=== PATIENT | male | born 1950 | race Caucasian/White ===

== ENCOUNTER 2016-05-31 16:49 | Emergency (ER) | payer MEDICARE, BC ==
[2016-05-31 17:11] VITALS: BP 144/72
--- NOTE | 2016-05-31 18:04 | UC ---
HPI Febrile Illness - HPI Summary HPI Summary: 65 yo male with less than 24 hour hx of f/c Tmax 103.2 chronic gagging/cough when taking PO (throat CA) no CP or SOB NO ABD pain no UTI symptoms no myalgia - History of Current Complaint Chief Complaint: UCGeneralIllness Time Seen by Provider: 05/31/16 17:12 Hx Obtained From: Patient Timing: Intermittent Temperature: 103.2 F Initial Severity: Moderate Current Severity: None Pain Intensity: 0 Pain Scale Used: 0-10 Numeric Alleviating Factors: Nothing Associated Signs and Symptoms: Myalgia - Risk Factors Pseudomonas Risk Factors: Negative - Additional Pertinent History Primary Care Physician: [id number] - Allergy/Home Medications Allergies/Adverse Reactions: Allergies Allergy/AdvReac Type Severity Reaction Status Date / Time No Known Allergies Allergy Verified 05/31/16 17:11 Home Medications: Home Medications Acetaminophen [Tylenol] 1,000 mg PO ONCE PRN 05/31/16 [History Confirmed ] PMH/Surg Hx/FS Hx/Imm Hx Previously Healthy: Yes Endocrine/Hematology History: Denies: Hx Diabetes Cardiovascular History: Reports: Hx Hypertension - treated with medication Denies: Hx Pacemaker/ICD History: Denies: Hx Dialysis, Hx Renal Disease Sensory History: Denies: Hx Contacts or Glasses, Hx Hearing Aid Opthamlomology History: Denies: Hx Contacts or Glasses EENT History: Reports: Other - throat CA Psychiatric History: Denies: Hx Panic Disorder - Cancer History Cancer Type, Location and Year: throat cancer - chemo and radiation (finished Mar 2015) Hx Chemotherapy: Yes - FINISHED 04/2015 - Surgical History Surgery Procedure, Year, and Place: skin graph removed from back 15+yrs ago Hx Anesthesia Reactions: No Infectious Disease History: No Infectious Disease History: Reports: Traveled Outside the [place] in Last 30 Days - [place] 2 weeks [place] - Family History Known Family History: Positive: Hypertension - Social History Alcohol Use: Rare Substance Use Type: Reports: None Hx Tobacco Use: No Smoking Status (MU): Never Smoked Tobacco Have You Smoked in the Last Year: No Review of Systems Constitutional: Fever, Chills, Fatigue Skin: Negative Eyes: Negative ENT: Negative Respiratory: Negative Cardiovascular: Negative Gastrointestinal: Negative Genitourinary: Negative Motor: Negative Neurovascular: Negative Musculoskeletal: Myalgia Neurological: Negative Psychological: Negative All Other Systems Reviewed And Are Negative: Yes Physical Exam Triage Information Reviewed: Yes Appearance: Well-Appearing, No Pain Distress, Well-Nourished Vital Signs: Initial Vital Signs Temp 100.4 F 05/31/16 17:00 Pulse 94 05/31/16 17:00 Resp 20 05/31/16 17:00 BP 144/72 05/31/16 17:00 Pulse Ox 96 05/31/16 17:00 Eyes: Positive: Conjunctiva Clear ENT: Positive: Pharyngeal erythema. Negative: Nasal congestion, Nasal drainage , Trismus Neck: Positive: Supple, Nontender Respiratory: Positive: Lungs clear, Normal breath sounds, No respiratory distress, No accessory muscle use Cardiovascular: Positive: RRR, No Murmur Abdomen Description: Positive: Nontender, No Organomegaly Bowel Sounds: Positive: Present Musculoskeletal: Positive: ROM Intact, No Edema Neurological: Positive: Alert Psychological Exam: Normal Skin Exam: Normal Course/Dx - Course Course Of Treatment: D/W MARIKA NEAL AT [facility]. MEET CRITERIA FOR ZIKA TESTING. NEEDS TO BE DONE A [facility] TOMORROW BTW 8-5 - Diagnoses Clinic Provider Diagnoses: PNEUMONIA Discharge - Discharge Plan Condition: Stable Disposition: HOME Prescriptions: Amoxicillin/Clavulanate TAB* [Augmentin TAB 875*] 875 mg PO BID #20 tab Patient Education Materials: Pneumonia (ED) Referrals: Iliana Prince MD [Primary Care Provider] - 1 Day Additional Instructions: REST FLUIDS TYLENOL THE HEALTH DEPARTMENT SAID YOU MET CRITERIA FOR ZIKA VIRUS TESTING....TAKE ORDER THIS NEEDS TO BE DONE AT THE HOSPITAL LAB TOMORROW BETWEEN 8 AND 5 SEE YOUR PROVIDER TOMORROW FOR RECHECK
--- NOTE | 2016-05-31 18:22 | RAD ---
Indication: Fever. History of head and neck cancer. 2 views of the chest are reviewed. Heart is of normal size and configuration. No mediastinal shift is noted. Increased density is noted in the right medial lung base which may represent right middle lobe infiltrate. No pleural fluid is identified. IMPRESSION: Likely infiltrate in the right medial lung base likely representing a right middle lobe pneumonia.
[2016-05-31] MEDS ORDERED: cefTRIAXone VIAL(*) 1,000 MG in NS 0.9% 50 ML* 50 ML IVPB ONE (18:30)
[2016-05-31] MEDS ORDERED: cefTRIAXone VIAL(*) 1,000 MG VIAL ONE (18:42)
[2016-06-01 10:29] LABS: Hematocrit 32 % (42-52); Hemoglobin 11.1 g/dl (14.0-18.0); Mean Corpuscular HGB Conc 35 g/dl (31-36); Mean Corpuscular Hemoglobin 29 pg (27-31); Mean Corpuscular Volume 84 fL (80-94); Mean Platelet Volume 6 um3 (7.4-10.4); Red Blood Count 3.82 10^6/ul (4.0-5.4); Red Cell Distribution Width 13 % (10.5-15); White Blood Count 13.9 10^3/ul (3.5-10.8)
[2016-06-01 10:30] LABS: Add Diff/Slide Review? Slide Review Added; Comments Flag Yes
== END 2016-05-31 19:44 | disposition home or self-care (01) ==
LOC: UCEAST 16:49
DX: J18.9 Pneumonia, unspecified organism (principal); I10 Essential (primary) hypertension; Z85.818 Personal history of malignant neoplasm of other sites of lip, oral cavity, and pharynx
CPT/HCPCS: 36415; 71020; 81002; 85025; 87502; 96365; 99212; G0463; J0696

== ENCOUNTER 2017-07-24 10:06 | Day surgery (SDC) | payer MEDICARE, BC ==
--- NOTE | 2017-07-09 17:36 | HP ---
CC: Dr. Iliana Prince; Dr. Cavanaugh * PREOPERATIVE HISTORY AND PHYSICAL: DATE OF PREOPERATIVE HISTORY AND PHYSICAL EXAMINATION: 07/09/17. DATE OF ADMISSION: 07/24/17 This patient is scheduled for same-day surgery admission by Dr. Carpenter on 07/24/17. ATTENDING SURGEON: Dr. Shiva Carpenter * (dictated by Lucila Luque NP). CHIEF COMPLAINT: Right inguinal hernia. HISTORY OF PRESENT ILLNESS: The patient is a 66-year-old male, recently evaluated by Dr. Carpenter for a right inguinal hernia. The patient describes a 3- month history of right groin pain that has slowed down his typical activities, which includes skiing. Approximately 4 weeks ago, the patient was lifting his stepfather and suffered with more significant right inguinal pain. Since then, he has avoided any strenuous activities, but has noticed a large bulge in the right groin. He denies any nausea or vomiting or any signs or symptoms to suggest incarceration or strangulation. He has had no abdominal or inguinal surgery. Dr. Carpenter examined the patient and notes an obvious right inguinal bulge consistent with hernia. Dr. Carpenter discussed the findings with the patient and has recommended laparoscopic right inguinal hernia repair with mesh as a same-day surgery procedure. Dr. Carpenter discussed the nature of the surgical procedure, the rationale for the procedure, the relevant risks, benefits, and alternatives and today, I reviewed the expected postoperative care and recovery. The patient has had a chance to ask questions and stated that he understands the information and is satisfied with the answers given to his questions. He will sign surgical consent on the day of surgery. PAST MEDICAL HISTORY: Significant for tonsillar cancer 2014, treated with 7 weeks of radiation therapy; hypertension; hyperlipidemia; and mild cognitive impairment, which he states occurred related to the radiation treatment. PAST SURGICAL HISTORY: None. MEDICATIONS: 1. Atorvastatin 10 mg p.o. daily in the evening. 2. Amlodipine 5 mg p.o. daily. 3. Ibuprofen 200 mg 3 to 4 tablets b.i.d. p.r.n. 4. Acetaminophen 325 mg 2 tablets p.o. q.6 p.r.n. 5. Multivitamin daily. ALLERGIES: No known drug allergies. FAMILY HISTORY: No known anesthesia complications, bleeding tendencies, or clotting disorder. SOCIAL HISTORY: He is retired; his significant other, Yelena will be with him on the day of surgery; he is a nonsmoker. He drinks alcohol socially and denies the use of other substances. REVIEW OF SYSTEMS: Constitutional: No fevers, chills, excessive fatigue, or weight loss. Endocrine: No diabetes or thyroid disease. Hematologic: No easy bruising or bleeding; he states that he had one blood transfusion during the radiation therapy in 2014. Respiratory: No dyspnea on exertion. No chronic cough. Cardiovascular: No anginal chest pain or palpitations. Gastrointestinal: No nausea, vomiting, diarrhea, GI bleeding, constipation, or change in bowel habits. Genitourinary: No dysuria. Musculoskeletal: No joint or back pain. Neurologic: No headache or blurred vision. No areas of focal weakness or numbness. Normal gait. General: He has never had general anesthesia and has tolerated intravenous sedation for colonoscopy; he does not think he has ever had a deep vein thrombosis or pulmonary embolism. PHYSICAL EXAMINATION GENERAL SURVEY: The patient is a 66-year-old male, well developed, well nourished, in no acute distress. VITAL SIGNS: Height 66 inches, weight 182 pounds, body mass index 29. Blood pressure 140/86, pulse 68 and regular, respiratory rate 16, and temperature 96.8 tympanic. HEENT: Benign. NECK: Supple. No cervical lymphadenopathy. LUNGS: Breath sounds bilaterally clear and equal. HEART: Regular rate and rhythm. No murmurs or rubs appreciated. ABDOMEN: Active bowel sounds. Soft, nontender, nondistended. No obvious masses or organomegaly. Inguinal exam is done by Dr. Carpenter revealed an obvious right inguinal bulge. No evidence of left inguinal hernia. Testes are normally descended without lesion. RECTAL EXAM: Deferred. EXTREMITIES: Warm without edema or skin ulceration. NEUROLOGIC: Alert and oriented x3. BACK: No CVA tenderness. SKIN: Warm, dry, and intact. IMPRESSION: Right inguinal hernia. PLAN: Same-day surgery admission to Dr. Carpenter's service on 07/24/17 for laparoscopic right inguinal hernia repair with mesh. YRN LUQUE NP [id number]/[facility] #: [id number] [facility]
[~2017-07-24 10:06] MED LIST: Buffered Lidocaine 0.9% SYRIN* 5 ML/SYR SYRINGE INTRADERM ONE; Famotidine IV* 10 MG/ML 2 ML (20 mg) IV ONE; Famotidine IV* 10 MG/ML 2 ML (20 mg) ONE; Midazolam* 1 MG/ML 5 ML VIAL (5 MG) ONE; ceFAZolin 2 GM in 100 MLS NS (*) BAG IVPB ONE; fentaNYL* 50 MCG/ML 2 ML VIAL (100 MCG VIAL) ONE
[2017-07-24] MEDS ORDERED: oxyCODONE TAB* 5 MG TAB PO PRN (10:31)
[2017-07-24] MEDS ORDERED: Naloxone* 0.4 MG/ML 1 ML VIAL IV PRN (10:31)
[2017-07-24] MEDS ORDERED: Acetaminophen TAB* 325 MG PO PRN (10:31)
[2017-07-24] MEDS ORDERED: HYDROmorphone INJ* 1 MG/ML CARPUJECT SYRINGE IV PRN (10:31)
[2017-07-24] MEDS ORDERED: Bupivacaine 0.25% SDV* 30 ML ONE (10:37)
[2017-07-24] MEDS ORDERED: Rocuronium* 10 MG/ML VIAL ONE (11:02)
[2017-07-24] MEDS ORDERED: Dexamethasone IV* 4 MG/ML 1 ML (4 MG) ONE (11:08)
[2017-07-24] MEDS ORDERED: Ketorolac INJ* 30 MG/ML 1 ML VIAL ONE (11:08)
[2017-07-24] MEDS ORDERED: Ondansetron INJ* 2 MG/ML VIAL ONE (11:08)
[2017-07-24] MEDS ORDERED: Propofol* 10 MG/ML 20 ML BTL IV PUSH ONE (11:08)
[2017-07-24] MEDS ORDERED: fentaNYL* 50 MCG/ML 2 ML VIAL (100 MCG VIAL) ONE (11:14)
[2017-07-24] MEDS ORDERED: EPHEDrine (Pressors)* 50 MG/ML VIAL ONE (11:41)
[2017-07-24] MEDS ORDERED: Glycopyrrolate IV* 0.2 MG/ML 1 ML VIAL ONE (11:41)
[2017-07-24 13:01] VITALS: BP 149/90
--- NOTE | 2017-07-28 01:30 | OP ---
CC: [facility]; Dr. Iliana Prince OPERATIVE REPORT: DATE OF OPERATION: 07/24/17 DATE OF : 50 SURGEON: Shiva Carpenter MD COMPUTER COMPOSITOR: RODOLFO Hough ANESTHESIA: General anesthesia. PRE-OP DIAGNOSIS: Right inguinal hernia. POST-OP DIAGNOSIS: Right inguinal hernia. OPERATIVE PROCEDURE: Laparoscopic right inguinal hernia repair with mesh. ESTIMATED BLOOD LOSS: Minimal blood loss. FLUIDS: Minimal crystalloid fluid given. SPECIMEN: None. DESCRIPTION OF PROCEDURE: The patient was identified in the preoperative area. Case was discussed wi th him and consent signed. The patient's abdomen was marked and he was brought to the operating room , placed on the operating table in the supine position. Preoperative antibiotics were given. Sequen tial devices were placed on bilateral lower extremities. General anesthesia was induced. The patien t's right groin and mid lower abdomen were prepped and draped in the standard surgical fashion after the hair was clipped. A time-out was performed. An infraumbilical incision was made. This was deepened down to the rectus pillar on the left. The f ascia was incised and the pillar of the rectus muscle retracted laterally and entry into the preperit owens plane was made. Blunt dissection was carried out with finger and a 12-mm trocar was inserted. Laparoscope was inserted through this after it was allowed to insufflate to a pressure of 12 mmHg an d blunt dissection was carried out right down to the pubic symphysis. Two 5-mm trocars were then placed in lower midline into this preperitoneal plane, it was then opened up even more with blunt dissection clearing up the midline as well as the Ole's ligament, both on left and right. The right side direct space appeared to have no hernia. The epigastric vessels were maintained anteriorly and the space of Bogros was cleared off laterally. We were then able to isola te the large indirect inguinal hernia. This was bluntly dissected free from the spermatic structures and allowed to fall back posteriorly. With the full myopectineal orifice cleared off, we placed a B reddy 3D mesh into the space and tacked it at the midline at Ole's ligament and also laterally. We did bring up the hernia sac and loosely tacked it to the visible side of the mesh. The preperitoneal plane was allowed to collapse. Trocars removed under direct vision and the anterior fascia at the u mbilical port site was reapproximated with a 0 Polysorb suture and all 3 skin incisions were reapprox imated with 4-0 Monocryl subcuticular sutures followed by Steri-Strips and sterile dressings. The rodolfo almazan tolerated the procedure well and was awoken up in the OR and transferred to the PACU in stable condition. [id number]/[facility] #: [id number]
== END 2017-07-24 13:36 | disposition home or self-care (01) ==
LOC: OR 10:06
PROVIDERS: ATTEND Surgery
DX: K40.90 Unilateral inguinal hernia, without obstruction or gangrene, not specified as recurrent (principal); Z85.21 Personal history of malignant neoplasm of larynx; I10 Essential (primary) hypertension; E78.5 Hyperlipidemia, unspecified; G31.84 Mild cognitive impairment of uncertain or unknown etiology; Z85.828 Personal history of other malignant neoplasm of skin
CPT/HCPCS: C1781; J1100; J1885; J2250; J2405; J2704; J3010